=== PATIENT | female | born 1975 | race Caucasian/White ===

== ENCOUNTER 2025-03-31 10:18 | Day surgery (SDC) | payer BC ==
[~2025-03-31] VITALS: Ht 160 cm; Wt 94.9 kg
[2025-03-31] MEDS ORDERED: QULIPTA60 MG PO (10:43)
[2025-03-31] MEDS ORDERED: PROP120ER (10:43)
[2025-03-31] MEDS ORDERED: DUPIXENT P200 MG/1.1 SQ (10:44)
[2025-03-31] MEDS ORDERED: FentaNYL Citrate 50 MCG/ML 2 ML Injection ONE (11:40)
[2025-03-31] MEDS ORDERED: Dexamethasone Sod Phos 10 MG/ML 1ML VIAL ONE (11:50)
[2025-03-31] MEDS ORDERED: Ondansetron HCl 2 MG / ML 2ML Vial ONE (11:50)
--- NOTE | 2025-03-31 12:13 | NUR ---
03/31/25 1213 lM [place] MYOSURE NORMAL SALINE FLUID DEFICIT OF 10ML. DR BETH NOTIFIED.
--- NOTE | 2025-03-31 13:41 | NUR ---
03/31/25 1341 Darnell Molina PT VOIDED PRIOR TO D/C.
== END 2025-03-31 13:32 | disposition home or self-care (01) ==
LOC: ORSCSDS 10:18
PROVIDERS: Obstetrics & Gynecology
PROC: 0UDB8ZX Extraction of Endometrium, Via Natural or Artificial Opening Endoscopic, Diagnostic (ICD-10-PCS; principal; 2025-03-31 11:45)
DX: N92.0 Excessive and frequent menstruation with regular cycle (principal); R93.89 Abnormal findings on diagnostic imaging of other specified body structures; E66.01 Morbid (severe) obesity due to excess calories; Z68.36 Body mass index [BMI] 36.0-36.9, adult; Z79.899 Other long term (current) drug therapy
CPT/HCPCS: 88305; J1100; J2405; J2704; J3010